=== PATIENT | female | born 2000 | race Caucasian/White ===

== ENCOUNTER → 2021-01-26 | Outpatient (CLI) | payer OTHER, BC ==
[2021-01-26 23:22] LABS: Basophils # (A) 0.03 X 10*3/uL (0.00-0.10); Basophils % (A) 0.4 %; Eosinophils # (A) 0.12 X 10*3/uL (0.04-0.35); Eosinophils % (A) 1.4 %; HCT 39.8 % (37.2-46.3); HGB 12.9 g/dL (12.0-15.0); Lymphocytes # (A) 2.02 X 10*3/uL (0.90-5.00); Lymphocytes % (A) 23.7 %; MCH 28.2 pg (27.0-32.0); MCHC 32.4 g/dL (32.0-37.0); MCV 87.1 fL (80.0-97.0); Mean Platelet Volume 12.3 fL (9.5-12.2); Monocytes # (A) 1.21 X 10*3/uL (0.20-1.00); Monocytes % (A) 14.2 %; Neutrophils # (A) 5.09 X 10*3/uL (1.80-7.70); Neutrophils % (A) 59.8 %; Platelet Count 209 X 10*3/uL (140-440); RBC 4.57 X 10*6/uL (4.10-5.20); RDW 12.5 % (11.5-14.5); WBC 8.51 X 10*3/uL (4.50-10.00)
[2021-01-27 03:28] LABS: African American GFR (CKD) 123.9 (60.0-200.0); Non-African American GFR(CKD) 106.9 (60.0-200.0)
[2021-01-27 05:07] LABS: Hepatitis B Surface AB- Quant 5.4 mIU/mL; Hepatitis B Surface Antibody Non-Reactive (Non-Reactive); Hepatitis B Surface Antigen Non-Reactive (Non-Reactive)
== END | disposition home or self-care (01) ==
LOC: LABWHC1 16:28
PROVIDERS: ATTEND Dermatology MOHS-Micrographic Surgery
DX: L40.0 Psoriasis vulgaris (principal)
CPT/HCPCS: 36415; 82565; 84450; 84460; 85025; 86480; 86706; 87340

== ENCOUNTER → 2021-02-08 | Outpatient (CLI) | payer OTHER, BC | END | disposition home or self-care (01) | LOC: LABWHC1 16:23 | PROVIDERS: ATTEND Dermatology MOHS-Micrographic Surgery | DX: L40.0 Psoriasis vulgaris (principal) | CPT/HCPCS: 36415; 86480 ==

== ENCOUNTER → 2022-02-02 | Outpatient (CLI) | payer OTHER, BC ==
[2022-02-02 15:42] LABS: African American GFR (CKD) 131.1 (60.0-200.0); Albumin 4.5 g/dL (3.8-4.9); Albumin/Globulin Ratio 2.37 (1.60-3.17); Anion Gap 10.4 mmol/L (10.00-18.00); BUN/Creat Ratio 14.49 Ratio (12.00-20.00); Calcium 9.1 mg/dL (8.7-10.3); Carbon Dioxide 24.7 mmol/L (20.0-27.5); Globulin 1.9 g/dL (1.6-3.3); Non-African American GFR(CKD) 113.1 (60.0-200.0); Potassium 4.5 mmol/L (3.5-5.5); T4, Free (Free Thyroxine) 1.04 ng/dL (0.830-1.430); Total Bilirubin 0.4 mg/dL (0.30-1.20); Total Protein 6.3 g/dL (6.2-8.2)
[2022-02-02 15:47] LABS: Thyroid Peroxidase Antibodies <9.0 U/mL (0.0-33.0)
[2022-02-02 16:49] LABS: Basophils # (A) 0.04 X 10*3/uL (0.00-0.10); Basophils % (A) 0.5 %; Eosinophils # (A) 0.21 X 10*3/uL (0.04-0.35); Eosinophils % (A) 2.6 %; HCT 40.8 % (37.2-46.3); HGB 12.9 g/dL (12.0-15.0); Immature Grans, Automated 0.5 %; Lymphocytes # (A) 2.62 X 10*3/uL (0.90-5.00); Lymphocytes % (A) 31.8 %; MCH 28.7 pg (27.0-32.0); MCHC 31.6 g/dL (32.0-37.0); MCV 90.7 fL (80.0-97.0); Mean Platelet Volume 11.7 fL (9.5-12.2); Monocytes # (A) 0.83 X 10*3/uL (0.20-1.00); Monocytes % (A) 10.1 %; NRBC Per 100 WBC 0 /100 WBCS (0.0-0.0); Neutrophils # (A) 4.49 X 10*3/uL (1.80-7.70); Neutrophils % (A) 54.5 %; Platelet Count 198 X 10*3/uL (140-440); RDW 12.5 % (11.5-14.5); WBC 8.23 X 10*3/uL (4.50-10.00)
== END | disposition home or self-care (01) ==
LOC: LABWHC1 10:10
PROVIDERS: ATTEND Nurse Practitioner Adult Health
DX: Z00.00 Encounter for general adult medical examination without abnormal findings (principal); E02 Subclinical iodine-deficiency hypothyroidism
CPT/HCPCS: 36415; 80053; 84439; 84443; 84481; 85025; 86376; 86800

== ENCOUNTER → 2022-02-08 | Outpatient (CLI) | payer BC ==
[2022-02-08 23:23] LABS: Basophils # (A) 0.04 X 10*3/uL (0.00-0.10); Basophils % (A) 0.4 %; Eosinophils % (A) 4.3 %; HCT 38.9 % (37.2-46.3); HGB 12.6 g/dL (12.0-15.0); Immature Grans, Automated 0.3 %; Lymphocytes % (A) 32.9 %; MCH 29.1 pg (27.0-32.0); MCHC 32.4 g/dL (32.0-37.0); MCV 89.8 fL (80.0-97.0); Mean Platelet Volume 11.9 fL (9.5-12.2); Monocytes % (A) 9.6 %; NRBC Per 100 WBC 0 /100 WBCS (0.0-0.0); Neutrophils # (A) 4.94 X 10*3/uL (1.80-7.70); Neutrophils % (A) 52.5 %; Platelet Count 209 X 10*3/uL (140-440); RBC 4.33 X 10*6/uL (4.10-5.20); RDW 12.4 % (11.5-14.5); WBC 9.41 X 10*3/uL (4.50-10.00)
[2022-02-08 23:25] LABS: Non-African American GFR(CKD) 106.1 (60.0-200.0)
[2022-02-09 00:18] LABS: Hepatitis B Surface AB- Quant 3.5 mIU/mL; Hepatitis B Surface Antibody Nonreactive (Nonreactive)
[2022-02-09 00:22] LABS: Hepatitis B Surface Antigen Nonreactive (Nonreactive)
== END | disposition home or self-care (01) ==
LOC: LABWHC1 16:15
PROVIDERS: ATTEND Dermatology MOHS-Micrographic Surgery
DX: L40.0 Psoriasis vulgaris (principal)
CPT/HCPCS: 36415; 82565; 84450; 84460; 85025; 86480; 86706; 87340

== ENCOUNTER → 2023-01-24 | Outpatient (CLI) | payer BC ==
[2023-01-24 16:40] LABS: African American GFR (CKD) 124.4 (60.0-200.0); Non-African American GFR(CKD) 107.3 (60.0-200.0)
[2023-01-24 17:15] LABS: Basophils # (A) 0.05 X 10*3/uL (0.00-0.10); Basophils % (A) 0.7 %; Eosinophils # (A) 0.37 X 10*3/uL (0.04-0.35); Eosinophils % (A) 4.8 %; HCT 38.5 % (37.2-46.3); HGB 12.9 g/dL (12.0-15.0); Immature Grans, Automated 0.4 %; Lymphocytes # (A) 3.21 X 10*3/uL (0.90-5.00); MCH 29.2 pg (27.0-32.0); MCHC 33.5 g/dL (32.0-37.0); MCV 87.1 fL (80.0-97.0); Mean Platelet Volume 11.6 fL (9.5-12.2); Monocytes # (A) 0.59 X 10*3/uL (0.20-1.00); Monocytes % (A) 7.7 %; NRBC Per 100 WBC 0 /100 WBCS (0.0-0.0); Neutrophils % (A) 44.4 %; Platelet Count 243 X 10*3/uL (140-440); RBC 4.42 X 10*6/uL (4.10-5.20); RDW 12.3 % (11.5-14.5); WBC 7.65 X 10*3/uL (4.50-10.00)
== END | disposition home or self-care (01) ==
LOC: LABWHC1 10:10
PROVIDERS: ATTEND Dermatology
DX: L40.0 Psoriasis vulgaris (principal)
CPT/HCPCS: 36415; 82565; 84450; 84460; 85025; 86480

== ENCOUNTER → 2023-10-02 | Outpatient (CLI) | payer BC | LOC: CPPFTMAIN 15:35 | PROVIDERS: ATTEND Family Medicine | DX: R06.00 Dyspnea, unspecified (principal) | CPT/HCPCS: 94060; 94726; 94729 ==